=== PATIENT | male | born 1975 | race African-American/Black ===

== ENCOUNTER 2019-03-18 11:11 | Emergency (ER) | payer OTHER ==
[~2019-03-18] VITALS: Ht 182.9 cm; Wt 77.1 kg
[2019-03-18] MEDS ORDERED: NAPROSYN500 M1 PO (11:26)
[2019-03-18] MEDS ORDERED: GLIMEPIRIDE4 MG PO (11:26)
[2019-03-18] MEDS ORDERED: FLEXERIL PO (11:28)
[2019-03-18 11:31] LABS: URINE BILIRUBIN NEGATIVE (Negative); URINE BLOOD NEGATIVE (Negative); URINE CLARITY CLEAR; URINE COLOR YELLOW; URINE GLUCOSE-RANDOM* NEGATIVE (Negative); URINE KETONES TRACE (Negative); URINE LEUKOCYTES-REFLEX NEGATIVE (Negative); URINE NITRITE-REFLEX NEGATIVE (Negative); URINE PROTEIN (DIPSTICK) NEGATIVE (Negative); URINE UROBILINOGEN 0.2 E.U./dl (0.2-1.0)
[2019-03-18 11:39] LABS: ABSOLUTE NEUTROPHILS 3.5 thou/uL (1.4-8.2); BASOPHILS 0.8 % (0.0-2.0); EOSINOPHILS 0.2 % (0.0-3.0); HEMATOCRIT 39.9 % (42.0-52.0); HEMOGLOBIN 13.5 gm/dL (14.0-18.0); LYMPHOCYTES 32.4 % (24.0-44.0); MCH 25.9 pg (26.0-34.0); MCHC 33.9 g/dL (28.0-37.0); MCV 76.5 fL (80.0-100.0); MONOCYTES 6.5 % (1.0-8.0); PLATELET COUNT 364 thou/uL (150-400); POLYS 60.1 % (36.0-66.0); RBC 5.21 mil/uL (4.50-6.00); RDW 13.3 % (10.5-14.5); WBC 5.8 thou/uL (4.0-11.0)
[2019-03-18 11:45] LABS: CALCIUM 9.6 mg/dL (8.5-10.1); CREATININE 0.9 mg/dL (0.7-1.3); POTASSIUM 3.3 mmol/L (3.5-5.1)
[2019-03-18 11:51] LABS: ALBUMIN 4.2 g/dL (3.4-5.0); TOTAL BILIRUBIN 0.6 mg/dL (<0.1-1.0)
[2019-03-18] MEDS ORDERED: REGLAN 10 MG TA10 MG PO (13:36)
[2019-03-18] MEDS ORDERED: PANTOPRAZOLE SO40 M1 PO (13:36)
[2019-03-18 14:27] VITALS: BP 129/79
== END 2019-03-18 14:29 | disposition home or self-care (01) ==
LOC: ER 11:11
PROVIDERS: Emergency Medicine
DX: K29.70 Gastritis, unspecified, without bleeding (principal); E11.9 Type 2 diabetes mellitus without complications